=== PATIENT | male | born 1965 | race Caucasian/White ===

== ENCOUNTER 2021-11-23 11:00 | Outpatient (CLI) | payer OTHER, SELFPAY ==
--- NOTE | ~2021-11-23 | XR_ITS ---
XR thoracic spine 3V DATE: 11/23/2021 11:20 INDICATION: Back pain. Thoracic spondylosis. TECHNIQUE: AP, lateral, swimmer views COMPARISON: None FINDINGS: There is degenerative disc disease at C4-5 and particularly at C5-6 and C6-7. There is mild dextroscoliosis and mild degenerative spurring of the thoracic spine. No fracture or dislocation or bone destruction of the thoracic spine. The thoracic pedicles are intac t. No paraspinal soft tissue thickening. IMPRESSION: Degenerative disc disease of mid and lower cervical spine Mild degenerative spurring of thoracic spine Mild dextroscoliosis of thoracic spine Reviewed, dictated and finalized at location A. CIPAL IOS DEVELOPER
--- NOTE | ~2021-11-23 | XR_ITS ---
EXAMINATION: XR chest 2V 11/23/2021 11:20 INDICATION: Back pain PROCEDURE: 2 view chest COMPARISON: 01/12/2016 FINDINGS: The lungs are clear. The cardiomediastinal silhouette is within normal limits. There are no pleural effusions. There is no pneumothorax suspected. The lungs are hyperinflated which is cons istent with, but not diagnostic of chronic obstructive pulmonary disease. IMPRESSION: 1: NO ACUTE CARDIOPULMONARY DISEASE. Reviewed, dictated and finalized at location B. THCARE ARCHITECT
== END 2021-11-23 11:01 ==
PROVIDERS: PCP Physician Assistant; Visit Provider Physician Assistant
DX: M47.814 Spondylosis without myelopathy or radiculopathy, thoracic region (principal); M50.30 Other cervical disc degeneration, unspecified cervical region
CPT/HCPCS: 71046; 72072

== ENCOUNTER 2025-06-19 18:16 | Emergency (ER) | payer OTHER, SELFPAY ==
--- NOTE | ~2025-06-19 | CT_ITS ---
EXAMINATION: CT abdomen pelvis w con DATE: 06/19/2025 20:10 INDICATION: Abdomen pain TECHNIQUE: Computed tomography (CT) of the abdomen and pelvis was performed with 100 cc Omnipaque 350 intravenous contrast. The dose-length product was 201.31 mGy-cm. Automated exposure control and iterative reconstruction technique were employed. COMPARISON: None. FINDINGS: Lung bases unremarkable. Dependent atelectasis. Heart size normal. No significant pleural or pericardial effusion. Fatty infiltration of the liver. The spleen, adrenal glands and kidneys are unremarkable. Gallbladder is contracted. There is a 1.8 cm cystic mass tail of the pancreas. Nonobstructive bowel gas pattern. No significant vascular abnormality. No lymphadenopathy. There is mild bladder wall thickening, suspicious for cystitis. Clinically correlate. No free air or free fluid. Moderate lumbar spondylosis. Moderate osteoarthritis of the hips. No focal lytic or blastic lesions. IMPRESSION: 1. Mild bladder wall thickening. Correlate clinically for cystitis. 2: Cystic mass tail of pancreas measuring 1.8 cm. The differential diagnosis includes pseudocyst, intraductal papillary mucinous neoplasm (IPMN), mucinous cystic neoplasm (MCN), and the less common serous cystadenoma and neuroendocrine tumor. Reviewed, dictated and finalized at location O. IMPRESSION: 1. Mild bladder wall thickening. Correlate clinically for cystitis. 2: Cystic mass tail of pancreas measuring 1.8 cm. The differential diagnosis in cludes pseudocyst, intraductal papillary mucinous neoplasm (IPMN), mucinous cys tic neoplasm (MCN), and the less common serous cystadenoma and neuroendocrine t umor.
--- OUTSIDE RECORDS SUMMARY | 2025-06-19 18:18 | XMS_ITS | Clinical Summary ---
Author Organization [facility] Address [address] [place] [address] Care Team Providers Care Hand Stapler Name Role Phone Josee Da Silva Primary Care Pr ovider Allergies No known active allergies Medications ALPRAZolam (XANAX) 0.5 mg tabletIndicatio ns:anxiety Take 1 tablet (0.5 mg total) by mouth 3 (three) times a day as needed 3 Active buPROPion SR (WELLBUTRIN SR) 100 mg 12 hr tabletIndicatio ns:Anxiety with Depression,Smok ing Cessation Take 1 tablet (100 mg total) by mouth 2 (two) times a day Pt hasn't started yet [address] (NexIUM) 20 mg capsuleIndicati ons:Mucositis Prophylaxis,Isidro atment of Non-Bleeding Gastric Disorder Take 1 capsule (20 mg total) by mouth daily as needed 2 Active nicotine (NICODERM CQ) 21 mgIndications:S moking Cessation Place 1 patch on the skin daily Active oxyCODONE (ROXICODONE) solution 5 mg/5 mLIndications:P ain Take 5 mL (5 mg total) by mouth every 3 (three) hours as needed for pain 500 mL 3 Active Additional Information Patient not taking.Reported on 07/04/2023 chlorhexidine (PERIDEX) 0.12 % solution Apply 15 mL to the mouth or throat 3 (three) times a day 500 mL 2 3 Active Additional Information Patient taking differently:15 mL mouth/throat 3 times daily, Prn, Reported on 10/09/2024 gabapentin (NEURONTIN) solution 250 mg/5 mLIndications:P ain Administer per tube 6 mL (300 mg total) 3 (three) times a day for 7 days, THEN 6 mL (300 mg total) 2 (two) times a day for 7 days, THEN 6 mL (300 mg total) nightly for 7 days. 252 mL 3 Active betamethasone, augmented, (DIPROLENE) 0.05 % ointment 3 Active omeprazole (PriLOSEC) 40 mg capsule Take by mouth daily 5 Active Active Problems Problem Noted Date Diagnosed Date Squamous cell carcinoma of floor of mouth 2022 Overview (03/15/2023): PROCEDURE PERFORMED (03/02/23, [facility]) 1. Bilateral floor of mouth resection, right partial glossectomy. 2. Bilateral neck dissection left level 1A and 1B, right level 1A, 1B, 2A, 3 and 4. 3. Open tracheostomy without Rafael flap. 4. Left medial sural artery manager retail flap by 5 x 7 cm 5. Microvascular anastomosis to right facial artery. a. Vena comitantes 2.5 mm to right commitantae vein. b. 2.0 mm university relations vice president to vena comitantes to right external jugular vein. Stage II (pT2, pN0, cM0) Medical History Medical History Date Comments Cancer (HCC) Tinnitus GERD (gastroesophageal reflux disease) 2014 Social History Tobacco Use Types Packs/Day Years Used Date Smoking Tobacco: Former Cigarettes Smokeless Tobacco: Never Tobacco Cessation:Counseling Given: Not Answered OASIS D0700: Social Isolation Answer Da te Recorded Frequency of experiencing loneliness or isolatio n Never 03/10/2023 AUDIT-C Answer Date Recorded Q1: How often do you have a drink containing alc ohol? Monthly or less 01/02/2024 Q2: How many drinks containi ng alcohol do you have on a typical day when you are drinking? 10 or more 01/02/2024 Q3: How often do you have si x or more drinks on one occasion? Never 01/02/2024 Personal Safety Answer Date Recorded Have you ever been in or are you currently in a harmful physical or emotional relationship or is someone making you feel afraid or unsafe? 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 Gender Identity Not on file Sexual Orientation Not on file Obstetrics History Last Filed Vital Signs Vital Sign Reading Time Taken Comments Blood Pressure 122/60 03/14/2023 10:00 AM CDT Pulse 91 03/14/2023 10:00 AM CDT Temperature 36.7 C (98 F) 03/14/2023 10:00 AM CDT Respiratory Rate 18 03/14/2023 10:00 AM CDT Oxygen Saturation 98% 03/14/2023 10:00 AM CDT Inhaled Oxygen Concentration - - Weight 66 kg (145 lb 9.6 oz) 01/07/2025 1:07 PM CDT Height 170.2 cm (5' 7) 01/02/2024 9:17 AM GRAIN PROCESSOR Body Mass Index 22.8 01/02/2024 9:17 AM GRAIN PROCESSOR Plan of Treatment Health Maintenance Due Date Last Done Comments Colon Cancer Screening-Colonoscopy 1966 Depression Screening 1966 Hepatitis C Screening 1966 Prostate Cancer Screening-PSA 1966 Hepatitis B Screening 02/04/1984 Regular Well Visit/Exam 18-64 02/04/1984 Zoster Vaccine (1 of 2) 02/04/2016 Influenza Vaccine (#1) 2025 DTaP/Tdap/Td Vaccine (2 - Td or Tdap) 11/21/2031 11/21/2021 Pneumococcal vaccine <65 Aged Out No longer eligible based on patient's age to complete this topic Medical Devices Implanted Type Area Customer Retention Specialist Device Identifier Shelf Expiration Date Model / Serial / Lot Jott Ligate Triangulate Cross Section Wire Small Wide Latex Free [id number] - [id number] Implanted:Qty: 6 on 03/02/2023 by Emma Fatima MD at [facility] Area 1 Security [id number] 10/31/2027 / / [id number] Jott 6 Cartridge Ligate Triangulate Cross Section Heart [id number] - [id number] Implanted:Qty: 10 on 03/02/2023 by Emma Fatima MD at [facility] [employer] [id number] 07/24/2027 [id number] / / [id number] Synovis Zhilian Zhaopin Allian Cedar 2.5mm Ring Pin Ultrasonic Doppler 20mhz Harbor Master Anastomosis [id number] - [id number] Implanted:Qty: 1 on 03/02/2023 by Emma Fatima MD at [facility] Neck Synovis Zhilian Zhaopin Allian 02/06/2027 [id number] / / [employer] Probe Doppler 17.4cm Standard Cuff Implantable 20mhz Latex Free Sterile Microvascular Anastomoses Patti [id number] - [id number] Implanted:Qty: 1 on 03/02/2023 by Emma Fatima MD at [facility] Neck [employer] [id number] 11/28/2025 [id number] / / [id number] [email or web address] Allian Cedar 2mm Ring Pin Ultrasonic Doppler 20mhz Harbor Master Anastomosis Latex Free 2752 - [id number] Implanted:Qty: 1 on 03/02/2023 by Emma Fatima MD at [facility] Neck [employer] Zhilian Zhaopin Allian [id number] 06/29/2027 [id number] / / [id number] Insurance [facility] Advance Directives For more information, please contact: [phone] * Full Code (Latest Code Status on File) Date Activated Date Inactivated Comments 03/02/2023 5:12 PM 03/09/2023 8:27 PM Care Teams Hand Stapler Relationship Specialty Start Date End Date Josee Da Silva PA PCP - General Physician Outside Upholsterer 03/05/23
--- OUTSIDE RECORDS SUMMARY | 2025-06-19 18:18 | XMS_ITS ---
Author Organization [facility] Address [address] [place] [address] Care Team Providers Care Expeditionary Fighting Vehicle Crewman Name Role Phone LuisanamartinaJosee Primary Care Pr ovider Active Problems Problem Noted Date Diagnosed Date Squamous cell carcinoma of floor of mouth 2022 Overview (03/15/2023): PROCEDURE PERFORMED (03/02/23, [facility]) 1. Bilateral floor of mouth resection, right partial glossectomy. 2. Bilateral neck dissection left level 1A and 1B, right level 1A, 1B, 2A, 3 and 4. 3. Open tracheostomy without Rafael flap. 4. Left medial sural artery supervisor line department flap by 5 x 7 cm 5. Microvascular anastomosis to right facial artery. a. Vena comitantes 2.5 mm to right commitantae vein. b. 2.0 mm craft worker to vena comitantes to right external jugular vein. Stage II (pT2, pN0, cM0) Current Treatment and Therapy Plans No current plan information found. Past Treatment and Therapy Plans No past plan information found. Lifetime Dose Tracking * Chemical Lifetime Dose Automatic Entry Manual Entr y DLP 1,982 mGycm 1,982 mGycm 0 mGycm
[2025-06-19 18:28] VITALS: BP 120/80; PULSE 80; RESP 16; TEMP 36.8; O2SAT 99
[2025-06-19 18:45] VITALS: BP 132/83; PULSE 85; RESP 20; O2SAT 96
[2025-06-19 18:48] LABS: Hematocrit 42.4 % (42.0-52.0); Hemoglobin 14.1 g/dL (14.0-18.0); Immature Granulocyte Percent A 0.5 % (0-0.5); Lymphocytes Absolute Auto 1.51 K/mm3 (0.9-3.2); Mean Corpuscular HGB Conc 33.3 g/dl (32-36); Mean Corpuscular Hemoglobin 31.5 pg (26-34); Mean Corpuscular Volume 94.9 fl (80-100); Nucleated Red Blood Cells Absolute Auto 0.000 K/mm3 (0.0-0.012); Nucleated Red Blood Cells Perc 0.0 % (0.0-0.2); Platelet Count Result 272 k/mm3 (150-375); Red Blood Count 4.47 M/mm3 (4.6-6.20); White Blood Count 12.0 K/mm3 (4.5-10.0)
[2025-06-19 19:12] LABS: Alanine Aminotransferase 21 U/L (6-50); Albumin Level 4.5 g/dL (3.5-5.1); Alkaline Phosphatase 88 U/L (38-126); Anion Gap 8 mmol/L (4-12); Aspartate Amino Transferase 31 U/L (17-59); Bilirubin,Total 0.4 mg/dL (0.2-1.3); Blood Urea Nitrogen 11 mg/dL (9-20); Calcium 9.5 mg/dL (8.4-10.2); Carbon Dioxide 25 mmol/L (22-30); Chloride 101 mmol/L (98-107); Estimated CRCL calculation 68 ml/min; Estimated Glomerular Filt Rate > 60; Glucose 108 mg/dL (65-110); Lipase 60 U/L (23-300); Potassium 4.1 mmol/L (3.4-5.0); Sodium 134 mmol/L (137-145); Total Protein 6.9 g/dL (6.3-8.2)
[2025-06-19 19:34] LABS: Magnesium 2.3 mg/dL (1.6-2.3)
[2025-06-19 19:45] VITALS: BP 140/75; PULSE 89; RESP 18; O2SAT 97
--- NOTE | 2025-06-19 19:45 | ED_ITS ---
HPI - Abdominal Pain General Chief Complaint: Abdominal Pain Stated Complaint: abdominal pain Time Seen by Provider: 06/19/25 19:12 History of Present Illness HPI narrative: Patient is a 60-year-old male who presents to the emergency department this evening complaining of left lower quadrant abdominal pain radiating from his left inguinal region to his left flank region. Patient denies any history of kidney stones. States the pain started suddenly while he was at the gas station around 4:00 p.m. and was unbearable for 2 hours. States that now the pain has resolved. denies any similar symptoms in the past, any nausea vomiting or diarrhea, no additional symptoms or concerns at this time. Related Data Allergies Allergy/AdvReac Type Severity Reaction Status Date / Time No Known Allergies Allergy Verified 06/19/25 19:48 Review of Systems 2 Review of Systems: All systems are reviewed and are negative unless stated otherwise in the HPI. [facility] Family History Family History Mother Patient's mother is in good health Father Family history of chronic obstructive pulmonary disease Social History Social History Second hand tobacco smoke exposure: No Alcohol intake: current Exam 2 Narrative: General: Alert, awake, afebrile, in no acute distress. HEENT: PERRL, no rhinorrhea, no post nasal drip, oropharynx clear. Neck: Trachea midline, no JVD, no lymphadenopathy. Cardiovascular: Regular rate and rhythm, no murmurs, rubs or gallops, no peripheral edema. Respiratory: Clear to auscultation bilaterally, no tachypnea, no wheezing, no rhonchi, no rubs, no respiratory distress. Abdomen: Soft, nontender, nondistended, no rebound, no guarding, no peritoneal signs. Musculoskeletal: No joint swelling or deformity, normal muscle tone. Skin: No rashes or petechia, no signs of infection. Psychiatric: Alert and oriented, normal behavior and judgment for situation. Neurological: Alert and oriented to person, place, and time. Follows all commands. No focal deficits, speech is clear and fluent. Course Vital Signs Vital signs: Vital Signs Temperature 98.2 F 06/19/25 18:28 Pulse Rate 80 06/19/25 18:28 Respiratory Rate 16 08/22/25 18:28 Blood Pressure 120/80 06/19/25 18:28 Pulse Oximetry 99 06/19/25 18:28 Temperature 98.2 F 06/19/25 18:28 Pulse Rate 89 06/19/25 19:45 Respiratory Rate 18 06/19/25 19:45 Blood Pressure 140/75 06/19/25 19:45 Pulse Oximetry 97 06/19/25 19:45 MDM - Abdominal Pain MDM Narrative Medical decision making narrative: The patient was evaluated by myself in the emergency department. History is obtained from patient who is an independent historian and physical exam was performed. External medical records were reviewed at this time. IV was established and pertinent tests were ordered. Patient was administered 1 L IV fluid bolus with normal saline, 15 mg of IV Toradol and 4 mg IV Zofran. Laboratory results obtained revealing no acute process. Urinalysis unremarkable. Imaging studies obtained included CT abdomen pelvis with IV contrast which was independently interpreted by me revealing: IMPRESSION: 1. Mild bladder wall thickening. Correlate clinically for cystitis. 2: Cystic mass tail of pancreas measuring 1.8 cm. The differential diagnosis includes pseudocyst, intraductal papillary mucinous neoplasm (IPMN), mucinous cystic neoplasm (MCN), and the less common serous cystadenoma and neuroendocrine tumor. Patient was informed of these findings at bedside. He states that he was not aware of any pancreatic cyst. Instructed that he will need to follow-up with his primary care physician and GI for additional testing/imaging to rule out cancer and patient is in agreement. Differential diagnosis considerations include kidney stones, UTI, pyelonephritis, diverticulitis, pancreatitis. Comorbidities impacting this visit include none. I have evaluated and discussed social determinants of health with the patient that could potentially impact subsequent diagnosis and treatment plans. On repeat assessment of the patient, reevaluation revealed that the patient is doing well and is in no acute distress. Patient symptoms have improved since he arrived to our emergency department. Repeat vital signs were all reviewed and noted to be stable. Differential diagnosis and treatment plan were discussed with the patient at bedside. Patient agrees with discussion and after shared medical decision making agrees with discharge. All questions were answered to the patient's satisfaction. Patient will follow up with GI in 3-5 days. Patient was provided with strict return precautions and instructed to return to the emergency department if any new or worsening symptoms develop. The patient was discharged in stable condition. Lab Data 06/19/25 18:42 06/19/25 18:42 Labs: Lab Results 06/19/25 06/19/25 Range/Units 18:42 19:53 WBC 12.0 H (4.5-10.0) K/mm3 RBC 4.47 L (4.6-6.20) M/mm3 Hgb 14.1 (14.0-18.0) g/dL Hct 42.4 (42.0-52.0) % MCV 94.9 (80-100) fl MCH 31.5 (26-34) pg MCHC 33.3 (32-36) g/dl RDW 12.2 (11.5-14.5) % Plt Count 272 (150-375) k/mm3 MPV 9.2 (7.4-10.4) fl Immature Gran % (Auto) 0.5 (0-0.5) % Neut % (Auto) 77.5 H (45.5-73.1) % Lymph % (Auto) 12.6 L (18.3-44.2) % [place] % (Auto) 7.9 (2.6-8.5) % Eos % (Auto) 0.9 (0-4.4) % Baso % (Auto) 0.6 (0.2-1.2) % Lymph # (Auto) 1.51 (0.9-3.2) K/mm3 [place] # (Auto) 1.0 H (0.1-0.6) K/mm3 Eos # (Auto) 0.1 (0-0.3) K/mm3 Baso # (Auto) 0.1 (0.0-0.1) K/mm3 Abs Immat Gran (auto) 0.06 H (0.00-0.031) K/mm3 Absolute Neuts (auto) 9.3 H (1.3-6.7) K/mm3 Absolute Nucleated RBC 0.000 (0.0-0.012) K/mm3 Nucleated RBC % 0.0 (0.0-0.2) % Sodium 134 L (137-145) mmol/L Potassium 4.1 (3.4-5.0) mmol/L Chloride 101 (98-107) mmol/L Carbon Dioxide 25 (22-30) mmol/L Anion Gap 8 (4-12) mmol/L BUN 11 (9-20) mg/dL Creatinine 0.93 (0.7-1.3) mg/dL Estim Creat Clear Calc 68 ml/min Estimated GFR > 60 (59 - ) Glucose 108 (65-110) mg/dL Calcium 9.5 (8.4-10.2) mg/dL Magnesium 2.3 (1.6-2.3) mg/dL Total Bilirubin 0.4 (0.2-1.3) mg/dL AST 31 (17-59) U/L ALT 21 (6-50) U/L Alkaline Phosphatase 88 (38-126) U/L Total Protein 6.9 (6.3-8.2) g/dL Albumin 4.5 (3.5-5.1) g/dL Lipase 60 (23-300) U/L Urine Color Yellow (Yellow) Urine Appearance Clear (Clear) Urine pH 7.0 (5.0-9.0) Ur Specific [place] 1.011 (1.001-1.035) Urine Protein Negative (Negative) mg/dL Urine Glucose (UA) Negative (Negative) mg/dL Urine Ketones Negative (Negative) mg/dL Ur Blood (Man) Negative (Negative) Urine Nitrate Negative (Negative) Urine Bilirubin Negative (Negative) Urine Urobilinogen 0.2 (<2.0) mg/dL Leukocyte Esterase Rfl Negative (Negative) RANDI/UL Imaging Data Radiologist's impression: ITS Impressions Abdomen/Pelvis CT 06/19/25 20:15 IMPRESSION: 1. Mild bladder wall thickening. Correlate clinically for cystitis. 2: Cystic mass tail of pancreas measuring 1.8 cm. The differential diagnosis includes pseudocyst, intraductal papillary mucinous neoplasm (IPMN), mucinous cystic neoplasm (MCN), and the less common serous cystadenoma and neuroendocrine tumor. Discharge Plan Discharge Clinical Impression: Abdominal pain, Pancreas cyst Patient Disposition: Home Condition: Improved Instructions: Antibiotic Form, Abdominal Pain (ED) Additional Instructions: Please follow-up with the GI doctor you were provided with today and her family doctor in 3-5 days as you will need an MRI for further evaluation of the pancreatic mass /cyst that was noted on CT scan. Return to the ED if any new or worsening symptoms develop. You CT abdomen pelvis with IV contrast revealed the following: IMPRESSION: 1. Mild bladder wall thickening. Correlate clinically for cystitis. 2: Cystic mass tail of pancreas measuring 1.8 cm. The differential diagnosis includes pseudocyst, intraductal papillary mucinous neoplasm (IPMN), mucinous cystic neoplasm (MCN), and the less common serous cystadenoma and neuroendocrine tumor. Patient Language: Ugandan Follow-up/Referrals: Avinash,IVAN Tripp [Primary Care Provider, Unknown] - 3 Days Zhnag Morgan MD [Physician, Gastroenterology] - 3 Days Time of Disposition: 20:28
[2025-06-19] MEDS: KETOROLAC 15 MG/ML VIAL (*BKC) IV PUSH (19:49)
[2025-06-19] MEDS: SODIUM CHLORIDE 0.9% IV 1,000 ML 999 ML IV CONT (19:49)
--- OUTSIDE RECORDS SUMMARY | 2025-06-19 19:49 | XMS_ITS | Clinical Summary ---
Author Organization [facility] Address [address] [place] [address] Care Team Providers Care Soap Inspector Name Role Phone Josee Da Silva Primary [...] Rafael flap. 4. Left medial sural artery digital marketing strategist flap by 5 x 7 cm 5. Microvascular anastomosis to right facial artery. a. Vena comitantes 2.5 mm to right commitantae vein. b. 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 Gender Identity Not on file Sexual Orientation [...] 170.2 cm (5' 7) 01/02/2024 9:17 AM COMPONENT ASSEMBLER SUPERVISOR Body Mass Index 22.8 01/02/2024 9:17 AM COMPONENT ASSEMBLER SUPERVISOR Plan of Treatment Health Maintenance Due Date [...] this topic Medical Devices Implanted Type Area Community Outreach Manager Device Identifier Shelf Expiration Date Model / Serial / Lot Qyuki Ligate Triangulate Cross Section Wire Small Wide Latex Free [id number] - [id number] Implanted:Qty: 6 on 03/02/2023 by Emma Fatima MD at [facility] [employer] [id number] 10/31/2027 / / [id number] Qyuki 6 Cartridge Ligate Triangulate Cross Section Heart [id number] - [id number] Implanted:Qty: 10 on 03/02/2023 by Emma Fatima MD at [facility] [employer] [id number] 07/24/2027 [id number] / / [id number] Synovis Media[employer] Allian [place]uba 2.5mm Ring Pin Ultrasonic Doppler 20mhz Photogrammetry Airplane Pilot Anastomosis [id number] - [id number] Implanted:Qty: 1 on 03/02/2023 by Emma Fatima MD at [facility] Neck Synovis [employer]o Allian 02/06/2027 [id number] / / [employer] Probe Doppler 17.4cm Standard Cuff Implantable 20mhz Latex Free Sterile Microvascular Anastomoses Patti [id number] - [id number] Implanted:Qty: 1 on 03/02/2023 by Emma Fatima MD at [facility] Neck [employer] [id number] 11/28/2025 [id number] / / [id number] Reunify Allian Yuba 2mm Ring Pin Ultrasonic Doppler 20mhz Photogrammetry Airplane Pilot Anastomosis Latex Free 2752 - [id number] Implanted:Qty: 1 on 03/02/2023 by Emma Ftaima MD at [facility] Neck Kuddles [employer] Allian [id number] 06/29/2027 [id number] / / [id number] Insurance [facility] Advance Directives For more information, please contact: [phone] * Full Code (Latest Code Status on File) Date Activated Date Inactivated Comments 03/02/2023 5:12 PM 03/09/2023 8:27 PM Care Teams Soap Inspector Relationship Specialty Start Date End Date Josee Da Silva PA PCP - General Physician Physician'S Aide 03/05/23
[2025-06-19] MEDS: ONDANSETRON INJ 4 MG/2 ML VIAL IV PUSH (19:50)
[2025-06-19 20:04] LABS: Add Urine Microscopic? NO; Appearance Urine Clear (Clear); Glucose Urine UA Negative (Negative); Leukocyte Esterase Ur Negative LEU/UL (Negative); Nitrate Urine Negative (Negative); Specific Grav Ur 1.011 (1.001-1.035)
== END 2025-06-19 20:53 | disposition home or self-care (01) ==
PROVIDERS: Student in an Organized Health Care Education/Training Program; Emergency Provider Emergency Medicine; PCP Physician Assistant
DX: R10.32 Left lower quadrant pain (principal); K86.2 Cyst of pancreas; R93.41 Abnormal radiologic findings on diagnostic imaging of renal pelvis, ureter, or bladder
CPT/HCPCS: 36415; 74177; 80053; 81003; 83690; 83735; 85025; 96361; 96374; 96375; 99284; J1885; J2405; J7030; Q9967